=== PATIENT | female | born 1935 | race Caucasian/White ===

== ENCOUNTER 2019-06-03 21:57 | Emergency (ER) | payer MEDICARE ==
[2019-06-03] MEDS ORDERED: EPINEPHrine SYR 0.1MG/ML* SYRINGE ONE (22:10)
--- NOTE | 2019-06-03 22:20 | ED ---
Cardiac Resuscitation - HPI Summary HPI Summary: This pt is an 84 Y/O F brought into [facility] by EMS after a witnessed cardiac arrest by her family around 2099 this date. EMS called ahead at 5 and reported that the pt was currently arresting. EMS states that the pt has been unconscious and arrested for 30 minutes before they were able to find a weak pulse of 130 BPMs and a BP of 140/106 at 2145. EMS states that the pt is without reflex and reactive pupils since they got the call. They gave the pt 6 rounds of Epi en route to [facility]. This pt is a level 5 caveat due to being actively unresponsive. - History of Current Complaint Chief Complaint: EDCardiacArrest Stated Complaint: ABC ALERT PER EMS Time Seen by Provider: 06/03/19 21:59 Hx Obtained From: EMS Hx From Patient Unobtainable Due To: Extremis - Level 5 caveat due to the pt being unresponsive Onset/Duration: Minutes/Hours: - Pt arrested around 2100, EMS called at 5 and reported weak pulsed and BP recorded. Arrest Witnessed: Yes Was AED Placed on Patient: Yes - Allergies/Home Medications Home Medications: Home Medications Unobtainable 06/03/19 [History Confirmed 06/03/19] - Past Medical History Past Medical History: Unobtainable Due to Extremis - Family History Family History: Unobtainable Due to Extremis - Social History Social History: Unobtainable Due to Extremis - Review of Systems Review of Systems: Unobtainable Due to Extremis Physical Examination - Physical Examination Triage Information Reviewed: Yes Completion Of Physical Exam Limited Due To: Extremis - Level 5 caveat due to unresponsive nature Procedures - Sedation Patient Received Moderate/Deep Sedation with Procedure: No Diagnostics - Laboratory Result Diagrams: 06/03/19 22:05 06/03/19 22:05 Lab Statement: Any lab studies that have been ordered have been reviewed, and results considered in the medical decision making process. - EKG 2206 Cardiac Rate: NL - 87 BPM EKG Rhythm: Atrial Fibrillation ST Segment: Other Summary of EKG Findings: Pt was given an EKG at 2206 which shows AFIB at 87 BPM and a RBBB and ST elevations in aVR with depressions in V5-V6. Interpreted by Dr. De La Torre at 2212 06/03/2019. Cardiac Resus. Course/Dx - Course Course Of Treatment: This pt is an 84 Y/O F brought into [facility] by EMS after a witnessed cardiac arrest by her family around 2100 this date. EMS called ahead at 2134 and reported that the pt was currently arresting. EMS states that the pt has been unconscious and arrested for 30 minutes before they were able to find a weak pulse of 130 BPMs and a BP of 140/106 at 2144. EMS states that the pt is without reflex and reactive pupils since they got the call. They gave the pt 6 rounds of Epi en route to [facility]. This pt is a level 5 caveat due to being actively unresponsive. Pt was given an EKG at 2206 which shows AFIB at 87 BPM and a RBBB and ST elevations in aVR with depressions in V5-V6. During the ED course the pt arrested again at 2209 after entering asystole and CPR started immediately. Epi was given at 2211 and again at 2214. The pt was without obtainable pulse during this time and TOD was called at 2216 after confirmation with US. - Diagnoses Provider Diagnoses: Cardiac arrest, , STEMI (ST elevation myocardial infarction) During the Visit The Following Alert/Code Occurred: ABC Alert - 2209 Discharge ED - Sign-Out/Discharge Documenting (check all that apply): Patient Departure - - Discharge Plan Condition: Disposition: Referrals: No Primary Care Phys,NOPCP [Primary Care Provider] - - Billing Disposition and Condition Condition: Disposition: - Attestation Statements Document Initiated by Elvis: Yes Documenting Scribe: Herrera Kerr Provider For Whom Elvis is Documenting (Include Credential): Jorge De La Torre MD Scribe Attestation: Herrera Espinoza scribed for Jorge De La Torre MD on 06/05/19 at 0352. Scribe Documentation Reviewed: Yes Provider Attestation: The documentation as recorded by the Herrera gonzalez accurately reflects the service I personally performed and the decisions made by me, Jorge De La Torre MD Status of Scribe Document: Viewed
[2019-06-03 22:29] VITALS: BP 151/97
[2019-06-03 22:30] LABS: ALT 69 U/L (7-52); Albumin 2.9 g/dL (3.2-5.2); Albumin/Globulin Ratio 1.1 (1-3); Alkaline Phosphatase 72 U/L (34-104); BUN/Creatinine Ratio 24.8 (8-20); Blood Urea Nitrogen 33 mg/dL (6-24); Calcium 7.7 mg/dL (8.6-10.3); Globulin 2.6 g/dL (2-4); Glucose 355 mg/dL (70-100); Sodium 143 mmol/L (135-145); Total Protein 5.5 g/dL (6.4-8.9)
[2019-06-03 22:36] LABS: CO2 Carbon Dioxide 11 mmol/L (22-32); Chloride 112 mmol/L (101-111)
[2019-06-03 23:08] LABS: Anion Gap 20 mmol/L (2-11)
[2019-06-03 23:10] LABS: ABS Lymphocytes 2.2 10^3/ul (1.0-4.8); ABS Monocytes 0.5 10^3/ul (0-0.8); ABS Neutrophils 7.2 10^3/ul (1.5-7.7); Eosinophil % 0.2 %; Hematocrit 42 % (35-47); Hemoglobin 12.7 g/dL (12.0-16.0); Lymphocyte % 22.1 %; Mean Corpuscular HGB Conc 31 g/dL (31-36); Mean Corpuscular Hemoglobin 31 pg (27-31); Mean Corpuscular Volume 100 fL (80-97); Mean Platelet Volume 10.2 fL (7.4-10.4); Nucleated Red Blood Cells % 0.1; Platelet Count 251 10^3/uL (150-450); Red Blood Count 4.17 10^6 /uL (3.70-4.87); Red Cell Distribution Width 15 % (10-15)
== END 2019-06-03 23:07 | disposition expired ==
LOC: ED 21:57
DX: I46.9 Cardiac arrest, cause unspecified (principal); I21.3 ST elevation (STEMI) myocardial infarction of unspecified site; I48.91 Unspecified atrial fibrillation
CPT/HCPCS: 36415; 80053; 83605; 84484; 85025; 99285; J0171